=== PATIENT | female | born 1960 | race Caucasian/White ===

== ENCOUNTER → 2024-09-22 11:18 | Outpatient (REF) | payer BC, SELFPAY ==
[2024-09-22 12:39] LABS: % Basophils 0.7 % (0-2); % Eosinophils 4.1 % (0-6); % Immature Granulocytes 0.5 % (0-0.5); % Lymphocytes 30.8 % (20.5-51.1); % Monocytes 8.6 % (1.7-9.3); % Neutrophils 55.3 % (42.2-75.2); Absolute Eosinophils 0.2 10^3/uL (0-0.7); Absolute Lymphocytes 1.4 10^3/uL (1.2-3.4); Absolute Monocytes 0.4 10^3/uL (0.1-0.6); Absolute Neutrophils 2.4 10^3/uL (1.4-6.5); Hematocrit 38.8 % (37.0-47.0); Hemoglobin 12.6 g/dL (12.0-16.0); Mean Corp Hgb Conc. 32.5 g/dL (33.0-37.0); Mean Corpuscular Hgb 29.5 pg (27.0-31.0); Mean Corpuscular Volume 90.9 fL (81.0-99.0); Mean Platelet Volume 10.1 fL (7.4-10.4); Nucleated Red Blood Cells % 0 %; Platelet Count 212 10^3/uL (130-400); Red Blood Cell Count 4.27 10^6/uL (4.20-5.40); Red Cell Dist. Width 13.2 % (11.5-14.5); White Blood Cell Count 4.4 10^3/uL (4.8-10.8)
[2024-09-22 12:55] LABS: ALT (SGPT) 18 U/L (0-35); AST (SGOT) 26 U/L (14-36); Albumin 4.1 g/dl (3.5-5.0); Alkaline Phosphatase 50 U/L (38-126); Blood Urea Nitrogen 14 mg/dl (7-17); Calcium 9.4 mg/dl (8.4-10.2); Carbon Dioxide 29 mmol/L (22-30); Chloride 99 mmol/L (98-107); Glucose 100 mg/dl (70-99); HDL Cholesterol 88 mg/dl; LDL Cholesterol, Calculated 95 mg/dl; Potassium 4.8 mmol/L (3.5-5.1); Sodium 137 mmol/L (135-145); Total Bilirubin 0.4 mg/dl (0.2-1.3); Total Cholesterol 207 mg/dl (50-199); Total Protein 6.3 g/dl (6.3-8.2); Triglyceride 123 mg/dl (10-149); Very Low Density Lipoprotein 24 mg/dl (0-30); eGFR > 60.00
[2024-09-22 13:11] LABS: Vitamin D, 25-OH*** 52.4 ng/mL (30-80)
[2024-09-22 14:31] LABS: Glycohemoglobin (HgbA1c) 5.9 % (4.0-5.6)
== END ==
LOC: REG 11:18
PROVIDERS: ATTENDING PHYSICIAN Registered Nurse; OTHER PHYSICIAN Internal Medicine Endocrinology, Diabetes & Metabolism
DX: R73.03 Prediabetes (principal); E05.90 Thyrotoxicosis, unspecified without thyrotoxic crisis or storm; Z00.00 Encounter for general adult medical examination without abnormal findings; Z13.220 Encounter for screening for lipoid disorders; M81.0 Age-related osteoporosis without current pathological fracture; E55.9 Vitamin D deficiency, unspecified
CPT/HCPCS: 36415; 80053; 80061; 82306; 83036; 84443; 85025

== ENCOUNTER → 2025-03-26 16:34 | Outpatient (REF) | payer BC, SELFPAY ==
[2025-03-26 17:14] LABS: Urine Character Slightly Cloudy (Clear)
[2025-03-26 17:21] LABS: Urine Red Blood Cell 30-40 /HPF (0-2); Urine White Cell 40-50 /HPF (0-5)
== END ==
LOC: REG 16:34
PROVIDERS: ATTENDING PHYSICIAN Nurse Practitioner Adult Health
DX: R39.9 Unspecified symptoms and signs involving the genitourinary system (principal)
CPT/HCPCS: 81003; 81015; 87077; 87086; 87186

== ENCOUNTER → 2025-07-02 13:05 | Outpatient (REF) | payer BC, SELFPAY | LOC: WDC 13:05 | PROVIDERS: ATTENDING PHYSICIAN Registered Nurse | DX: M81.0 Age-related osteoporosis without current pathological fracture (principal); Z12.31 Encounter for screening mammogram for malignant neoplasm of breast; L40.9 Psoriasis, unspecified; M25.50 Pain in unspecified joint | CPT/HCPCS: 73120; 77063; 77067 ==